=== PATIENT | female | born 1960 | race Caucasian/White ===

== ENCOUNTER → 2016-10-15 | Outpatient (CLI) | payer OTHER ==
[~2016-10-15] MED LIST: CHOL100010 PO; MULT-506 PO; PROGESTERONE CREAM TOP; [UNRECOGNIZED DRUG - CODE]
--- NOTE | 2016-10-15 16:27 | MAMMOGRAPHY REPORT ---
BILATERAL DIGITAL SCREENING MAMMOGRAM TOMOSYNTHESIS WITH CAD: 10/15/2016 CLINICAL HISTORY: Routine screening examination. TECHNIQUE: Breast tomosynthesis in addition to standard 2D mammography was performed. Current study was also evaluated with a Computer Aided Detection (CAD) system. COMPARISON: Comparison is made to exams dated: 10/10/2015 mammogram, 10/07/2014 mammogram, 10/05/2013 ul trasound, 10/05/2013 mammogram, 04/02/2013 mammogram, and 04/02/2013 ultrasound - [facility] enter. BREAST COMPOSITION: The tissue of both breasts is heterogeneously dense, which may obscure small mas ses. FINDINGS: There is a stable ribbon shaped metallic biopsy marker in the right upper outer quadrant. A few benign rim calcifications in the breasts. No suspicious mass, architectural distortion or clu ster of suspicious microcalcifications is seen. IMPRESSION: ACR BI-RADS CATEGORY 1: NEGATIVE There is no mammographic evidence of malignancy. A 1 year screening mammogram is recommended. The pa tient will receive written notification of the results. Approximately 10% of breast cancers are not detected with mammography. A negative mammographic report should not delay biopsy if a clinically suggestive mass is present. Josie Tarango M.D. ay/:10/15/2016 15:43:58 [employer] Operator: Consuelo WU)(M), [facility] letter sent: Normal 1/2 BI-RADS Code: ACR BI-RADS Category 1: Negative
== END | disposition home or self-care (01) ==
LOC: C.MAMM 08:24
PROVIDERS: ATTEND Obstetrics & Gynecology
DX: Z12.31 Encounter for screening mammogram for malignant neoplasm of breast (principal)

== ENCOUNTER → 2016-12-18 | Outpatient (CLI) | payer OTHER | END | disposition home or self-care (01) | LOC: C.PAPS 12:01 | PROVIDERS: ATTEND Obstetrics & Gynecology | DX: Z01.419 Encounter for gynecological examination (general) (routine) without abnormal findings (principal) ==

== ENCOUNTER → 2016-12-24 | Day surgery (SDC) | payer OTHER ==
[2016-12-19 12:52] VITALS: BMI 19.0
[~2016-12-24] VITALS: Ht 165.1 cm; Wt 51.8 kg
[~2016-12-24] MED LIST changes: +PROPOFOL IV EMULSION 10 MG/ML 20 ML VIAL IV ONE; +SODIUM CHLORIDE 0.9% 500ML 500 ML IV ONE
[2016-12-24 08:23] VITALS: Ht 165.1 cm; Wt 51.8 kg
--- NOTE | 2016-12-24 08:39 | Endo History and Physical ---
History & Physical Date of Service: Dec 24, 2016. Chief Complaint: Malignant neoplasm Referring Physician: Chirag Ferguson History of Present Illness 56 yo CF who presents for colonoscopy secondary to family history of colon cancer. Past Surgical History Hx Cardiac Surgery: No Hx Internal Defibrillator: No Hx Pacemaker: No Hx Abdominal Surgery: Yes (APPY, OVARIAN CYSTECTOMY, FATTY LIPOMA REMOVAL FROM ABDOMEN) Hx of Implantable Prosthesis: No Hx Post-Op Nausea and Vomiting: No Hx Cancer Surgery: No Hx Thoracic Surgery: No Hx Orthopedic: No Hx Urinary Tract Surgery: No Family History Colon CA Social History Smoking Status: Never Smoker Hx Substance Use: No Hx Alcohol Use: Yes (OCCASIONAL) Allergies Coded Allergies: Aspirin (Verified Allergy, Unknown, HIVES, 12/24/16) Current Medications Reported Home Medications Medications Dose Route/Sig Max Daily Dose Days Date Category Estriol Concentrate (Estriol (Bulk)) 10 % Cre 1 Dose UD 12/19/16 Reported Vitamin D (Cholecalciferol) 1,000 Unit Tab 1 Tab PO QAM 12/19/16 Reported Multivitamin (Multivitamins) Tab 1 Tab PO BID 12/19/16 Reported [Progesterone Cream] 1 Dose TOP DAILY 12/19/16 Reported Vital Signs Weight (Kilograms): 51.82 Height (Feet): 5 Height (Inches): 5 Physical Exam General Appearance: WD/WN, no apparent distress Respiratory/Chest: Auscultation: breath sounds normal Cardiovascular: Heart Auscultation: RRR Abdomen: Bowel Sounds: normal Inspection & Palpation: soft, non-distended, no tenderness, guarding & rebound Assessment and Plan Assessment: 56 yo CF who presents for colonoscopy secondary to family history of colon cancer. Plan: Proceed with colonoscopy.
--- NOTE | 2016-12-24 09:27 | Discharge Instructions ---
Endoscopy Patient Instructions Date / Procedure(s) Performed Dec 24, 2016. Colonoscopy Allergy Information Coded Allergies: Aspirin (Verified Allergy, Unknown, HIVES, 12/24/16) Discharge Date / Findings Dec 24, 2016. Internal hemorrhoids Medication Instructions OK to resume all medications today as prescribed Reported Home Medications Medications Dose Route/Sig Max Daily Dose Days Date Category Estriol Concentrate (Estriol (Bulk)) 10 % Cre 1 Dose UD 12/19/16 Reported Vitamin D (Cholecalciferol) 1,000 Unit Tab 1 Tab PO QAM 12/19/16 Reported Multivitamin (Multivitamins) Tab 1 Tab PO BID 12/19/16 Reported [Progesterone Cream] 1 Dose TOP DAILY 12/19/16 Reported Provider Instructions Activity Restrictions - No exercising or heavy lifting for 24 hours. - Do not drink alcohol the day of the procedure. - Do not drive a car or operate machinery until the day after the procedure. - Do not make any important decisions or sign important papers in 24 hours after the procedure. Following Day: - Return to full activity which may include returning to work/school. Diet Start your diet with liquids and light foods (jello, soup, juice, toast). Then eat your usual diet if not nauseated. Treatment For Common After Affects For mild abdominal pain, bloating, or excessive gas: - Rest - Eat lightly - Lie on right side Follow-Up Information Follow-up with LIZBETH LEON as scheduled Anesthesia Information What You Should Know You have had a procedure that required some medicine to reduce anxiety and discomfort. This treatment is called moderate sedation. After receiving the treatment, you may be sleepy, but you will be able to breathe on your own. The effects of the treatment may last for several hours. Follow these instructions along with Activity/Diet recommendations noted above: * Do NOT do anything where dizziness or clumsiness would be dangerous. * Rest quietly at home today, then you can be up and about tomorrow. * Have a responsible person stay with you the rest of today. * You may have had an I.V. today. If so, you may take the dressing off later today. Recommendations Call your doctor if: * Trouble breathing * Continuous vomiting for more than 24 hours * Temperature above 101 degrees * Severe abdominal pain or bloating * Pain not relieved by pain medicine ordered * There is increased drainage or redness from any incision * A large amount of rectal bleeding greater than 2-3 tablespoons. (If you had a polyp/s removed or have hemorrhoids, a small amount of blood - from the rectum is to be expected.) * You have any unanswered questions or concerns. IN THE EVENT OF A SERIOUS EMERGENCY, GO TO THE NEAREST EMERGENCY ROOM Your discharge instructions were prepared by provider Bryan Jarquin. Patient Instructions Signature Page Myra Sapp Patient (or Guardian) Signature/Date: I have read and understand the instructions given to me by my caregivers. Caregiver/RN/Doctor Signature/Date: The above-named patient and/or guardian has received patient instructions on this date. + Original Patient Signature Page (only) stays with chart. Please make copy for patient.
--- NOTE | 2016-12-24 09:46 | GI REPORT ---
Procedure Date: 12/24/2016 8:51 AM Procedure: Colonoscopy Indications: Family history of colon cancer in a first-degree relative Medicines: Monitored Anesthesia Care Complications: No immediate complications. Estimated Blood Loss: Estimated blood loss: none. Procedure: Pre-Anesthesia Assessment: - Prior to the procedure, a History and Physical was performed, and patient medications and allergies were reviewed. The patient's tolerance of previous anesthesia was also reviewed. The risks and benefits of the procedure and the sedation options and risks were discussed with the patient. All questions were answered, and informed consent was obtained. Prior Anticoagulants: The patient has taken no previous anticoagulant or antiplatelet agents. ASA Grade Assessment: II - A patient with mild systemic disease. After reviewing the risks and benefits, the patient was deemed in satisfactory condition to undergo the procedure. After I obtained informed consent, the scope was passed under direct vision. Throughout the procedure, the patient's blood pressure, pulse, and oxygen saturations were monitored continuously. The scope was introduced through the anus and advanced to the terminal ileum. The colonoscopy was performed without difficulty. The patient tolerated the procedure well. The quality of the bowel preparation was good. The terminal ileum, ileocecal valve, appendiceal orifice, and rectum were photographed. Findings: Non-bleeding internal hemorrhoids were found during retroflexion. The hemorrhoids were small. Impression: - Non-bleeding internal hemorrhoids. - No specimens collected. Recommendation: - Resume previous diet. - Continue present medications. - Repeat colonoscopy in 5 years for surveillance. - Return to primary care physician as previously scheduled. Bryan Jarquin DO 12/24/2016 9:46:10 AM This report has been signed electronically. Note Initiated On: 12/24/2016 8:51 AM I attest to the content of the Intraoperative Record and orders documented therein, exceptions below
--- NOTE | 2016-12-24 09:57 | Anesthesiology Progress Note ---
Anesthesia Post Op Note Date & Time Dec 24, 2016 at 09:57 Vital Signs Pain Intensity: 0 Vital Signs Past 12 Hours Date Time Temp Pulse Resp B/P (MAP) Pulse Ox O2 Delivery O2 Flow Rate FiO2 12/24/16 08:38 36.6 99 20 141/98 (112) 100 Room Air Notes Mental Status: alert / awake / arousable, participated in evaluation Pt Amnestic to Procedure: Yes Nausea / Vomiting: adequately controlled Pain: adequately controlled Airway Patency, RR, SpO2: stable & adequate BP & HR: stable & adequate Hydration State: stable & adequate Anesthetic Complications: no major complications apparent
[2016-12-24 10:00] VITALS: BP 125/88; PULSE 59; O2SAT 100
== END | disposition home or self-care (01) ==
LOC: C.GI 08:12
PROVIDERS: ATTEND Internal Medicine
DX: Z80.0 Family history of malignant neoplasm of digestive organs (principal); K57.90 Diverticulosis of intestine, part unspecified, without perforation or abscess without bleeding; K64.8 Other hemorrhoids

== ENCOUNTER 2022-11-24 14:43 | Observation (INO) ==
[2022-11-24] MEDS ORDERED: SODIUM CHLORIDE 0.9% 1000ML 1,000 ML IV ONE (14:58)
[2022-11-24 15:29] LABS: Basophils # (auto) 0.05 K/uL (0-0.2); Basophils % (auto) 0.5 %; Eosinophils # (auto) 0.06 K/uL (0-0.50); Eosinophils % (auto) 0.7 %; Hemoglobin 14.8 g/dl (12.0-16.0); Immature Granulocytes # (auto) 0.04 K/uL (0.01-0.20); Immature Granulocytes % (auto) 0.4 %; Lymphocytes # (auto) 1.55 K/uL (1.2-3.4); Mean Corpuscular Hemoglobin 31.6 pg (25.0-34.0); Mean Corpuscular Hgb Conc 35.2 g/dL (32.0-36.0); Mean Corpuscular Volume 89.7 fL (80.0-100.0); Mean Platelet Volume 10.8 fL (9.4-12.4); Monocytes # (auto) 0.78 K/uL (0.11-0.59); Monocytes % (auto) 8.6 %; Neutrophils # (auto) 6.62 K/uL (1.40-6.50); Neutrophils % (auto) 72.8 %; Platelet Count 252 K/uL (130-400); RDW Coefficient of Variation 12.3 % (11.5-14.5); RDW Standard Deviation 40.4 fL (36.4-46.3); Red Blood Count 4.68 M/uL (4.20-5.40)
--- NOTE | 2022-11-24 15:33 | XRay Report ---
SINGLE VIEW CHEST CLINICAL HISTORY: Atypical chest pain FINDINGS: An AP, portable, upright chest radiograph is obtained. No prior studies are available for c omparison at the time of dictation. The cardiomediastinal silhouette is unremarkable. The lungs and p leural spaces are clear. No pneumothorax is seen. The bony thorax is grossly intact. IMPRESSION: No active disease in the chest. ACT 112: Negative or not required by law. Electronically signed by: Brady Bean M.D. 11/24/2022 3:32 PM
[2022-11-24 15:38] LABS: Albumin Globulin Ratio 1.6 (0.9-2); Albumin Level 4.6 gm/dl (3.4-5.0); Bilirubin,Total 0.8 mg/dl (0.2-1.0); Calcium 9.5 mg/dl (8.6-10.3); Creatinine Clr Calc Pharmacy 59.6 ml/min; Est GFR (African American) 97.6 ml/min; Est GFR (Non-African American) 84.2 ml/min; Globulin 2.9 gm/dl (2.5-4.0); Magnesium 1.9 mg/dl (1.7-2.4); Potassium 3.7 mmol/L (3.5-5.1); Total Protein 7.5 gm/dl (6.0-8.3)
[2022-11-24 15:45] LABS: Troponin I High Sensitivity 2.5 pg/ml (0-14)
[2022-11-24] MEDS ORDERED: IOVERSOL 350 MG 125mL Prefilled Syringe IV ONE (15:54)
--- NOTE | 2022-11-24 16:17 | Emergency Department Note ---
Impression & Plan Cholecystitis, Cholelithiasis, Chest pain ED Provider Note NAME: TERESA WAN AGE: 62 SEX: F ARRIVES VIA: Walk-In INFORMANT: Patient ED PROVIDER(S): Ace Pressley MD CHIEF COMPLAINT: Chest pain PLAN: Disposition: Admit MEDICAL DECISION MAKING: The patient is a pleasant 62-year-old woman who reports a past medical history of acid reflux who presents to emergency department via walk-in for evaluation of 4-5 days of constant lower substernal chest pain which she reports radiates to her back. She reports she thought her symptoms could be related to acid reflux but had no improvement with Tums. She denies shortness of breath, nausea, vomiting, fevers, chills, cough, congestion. She denies diarrhea or urinary symptoms. Of note, the patient did arrive to emergency department during time of high volume, acuity and prolonged emergency department waiting times. Critical pathways initiated from triage. On my evaluation, the patient is in no acute distress, afebrile heart in the 120s and blood pressure 150s/80s and vital signs otherwise stable. Her abdomen is nontender and there is a negative Saldaña sign. EKG without overt acute ischemia. Chest x-ray negative for acute cardiopulmonary process WBC, H/H and platelets within normal limits. Chemistry without metabolic acidosis. Electrolytes and LFTs unremarkable. High-sensitivity troponin 2.5, within normal limits. Lipase not elevated. CT of the chest was performed and was negative for PE or acute pulmonary process otherwise. Note is made of possible cholecystitis where edema and gallstone in the gallbladder fossa is suspected. Right upper quadrant ultrasound was obtained and further characterizes suspected cholecystitis with gallbladder is markedly distended and filled with stones and sludge. Gallbladder wall is thickened and edematous measuring up to 5 mm and there is associated pericholecystic fluid. CBD measures up to 0.5 cm in diameter. I did reevaluate the patient at the bedside and her abdomen continues to be benign and nontender. I did review her findings which otherwise would explain her symptoms given her upper abdominal/lower chest pain with radiation to her back. She did agree with plan for admission for further evaluation and management. Case was discussed with general surgery on-call, Dr. Rae, appreciate consultation and recommendations. Plan for admission to medicine service and they will evaluate the patient for further recommendations. Case was discussed with Dr. Soares, [facility] hospitalist, who will evaluate the patient for admission. IV ceftriaxone and Flagyl ordered. Triage Nursing notes reviewed and agree them. Prior/outside medical records reviewed Vital Signs: reviewed Differential diagnosis: Cardiac ischemia, aortic dissection, pulmonary embolism, pneumothorax, pneumonia, pericarditis, myocarditis, esophageal rupture, GERD, cholecystitis, pancreatitis, musculoskeletal, as well as other pathologies. ER treatment provided: See below. Diagnostics interpreted by me: ECG: Normal sinus rhythm, 97 bpm, no ectopy, no overt ST elevation or depression, QTc 459, QRS 90. Of note, machine interpretation of possible ectopic atrial rhythm is suspected to be artifactual. Cardiac Monitoring: An order for continuous cardiac monitoring was placed and demonstrated Normal sinus rhythm, 97 bpm, no ectopy. Laboratory studies: See below Imaging studies: See below Consultation(s): Dr. Rae, General surgery. Dr. Soares, [facility] hospitalist. HPI: The patient is a pleasant 62-year-old woman who reports a past medical history of acid reflux who presents to emergency department via walk-in for evaluation of 4-5 days of constant lower substernal chest pain which she reports radiates to her back. She reports she thought her symptoms could be related to acid reflux but had no improvement with Tums. She denies shortness of breath, nausea, vomiting, fevers, chills, cough, congestion. She denies diarrhea or urinary symptoms. ROS: See above HPI for pertinent positives & negatives. A total of 10 systems reviewed and were otherwise negative. VITALS:See Below PHYSICAL EXAMINATION: GENERAL: Awake, alert, fatigued but well-appearing, in no distress HENT: Normocephalic, atraumatic. Oropharynx with dry mucous membranes and otherwise unremarkable. EYES: Normal conjunctiva. Sclera non-icteric. NECK: Supple. No nuchal rigidity. FROM. No JVD. RESPIRATORY: Clear to auscultation. CARDIAC: Tachycardic rate, normal rhythm. Extremities warm and well perfused. Pulses equal. ABDOMEN: Soft, non-distended. No tenderness to palpation. No rebound or guarding. No masses. RECTAL: Deferred. MUSCULOSKELETAL: Chest examination reveals no tenderness. The back is symmetrical on inspection without obvious abnormality. There is no CVA tenderness to palpation. No joint edema. LOWER EXTREMITIES: Calves are equal size bilaterally and non-tender. No edema. No discoloration. NEURO: Normal sensorium. No sensory or motor deficits noted. SKIN: No rash or jaundice noted. Ace Pressley MD Past Med/Surg History Medical History Anxiety Breast cyst Cervical polyp Cholelithiases Depression Diverticulosis Elevated blood pressure reading without diagnosis of hypertension Herpes genitalis History of ovarian cyst Internal hemorrhoids Leaky heart valve DOES NOT FOLLOW W/ CARDIO Postmenopausal bleeding Surgical History History of anesthesia reaction SLOW TO WAKE History of appendectomy History of biopsy (~2012) endometrial biopsy History of breast biopsy (~2010) Right side History of cervical polypectomy History of colonoscopy (~2016) History of dilation and curettage (~07/09/18) History of ovarian cystectomy History of tooth extraction Status post hysteroscopic polypectomy Family History Father Colorectal cancer Grandmother (Maternal) Breast cancer Mother Liver cancer Denies family history of Ovarian cancer Prostate cancer Myocardial infarction Social History Smoking Status: Never smoker Second Hand Exposure: No; Do You Dip or Chew Tobacco: No; Hx Alcohol Use: Yes Alcohol type: beer Hx Substance Use: No Preferred Language: Citizen [place] Communication Ability: Effective Visual Impairment: Partially Limited Hearing Ability: Normal Counter Former Required: No Beliefs That Will Affect Care: None marital status: Current Living Situation: Spouse current occupational status: employed current occupation: [employer] Feels Safe at Home: Yes Childhood Exposure to Second-Hand Smoke: Yes caffeine: Yes Dental Care, Regularly: Yes Physical Activity Frequency: 5-6 Times per Week Seatbelt Use: always Sunscreen Use: Yes Assistive Devices: Glasses Allergies Allergies Allergy/AdvReac Type Severity Reaction Status Date / Time aspirin Allergy Unknown HIVES Verified 11/24/22 16:21 Home Meds Home Medications Medication Instructions Recorded Confirmed multivitamin 1 tab PO QAM 06/20/18 11/24/22 omega-3 fatty acids 1,000 mg 1,000 mg PO QAM 12/18/18 11/24/22 capsule Results & Data (ED) Vital Signs Vital Signs - 24 hr 11/24/22 14:43 11/24/22 15:03 11/24/22 15:10 Temperature 36.4 C L Temperature Source Temporal Artery Scan Pulse Rate 122 H 84 Pulse Rate [Left Apical] 86 Respiratory Rate 16 21 Respiratory Effort / Characteristics Non-Labored Spontaneous Respiratory Depth Normal Blood Pressure 153/88 H Blood Pressure [Right Arm] 166/96 H Blood Pressure Mean 109 Blood Pressure Mean [Right Arm] 119 Pulse Oximetry 100 100 Oxygen Delivery Method Room Air Room Air Sepsis Recent Fever Within 48 Hours No Sepsis New/Unexplained Change in Mental Status No Sepsis Action Taken by Nursing No Action Required 11/24/22 15:10 11/24/22 15:30 11/24/22 16:06 Temperature Temperature Source Pulse Rate 82 91 H 77 Pulse Rate [Left Apical] Respiratory Rate 13 15 18 Respiratory Effort / Characteristics Respiratory Depth Blood Pressure 159/97 H 153/83 H Blood Pressure [Right Arm] Blood Pressure Mean 117 106 Blood Pressure Mean [Right Arm] Pulse Oximetry 100 100 100 Oxygen Delivery Method Room Air Room Air Room Air Sepsis Recent Fever Within 48 Hours Sepsis New/Unexplained Change in Mental Status Sepsis Action Taken by Nursing 11/24/22 16:30 11/24/22 17:00 11/24/22 18:05 Temperature Temperature Source Pulse Rate 78 86 76 Pulse Rate [Left Apical] Respiratory Rate 14 23 16 Respiratory Effort / Characteristics Respiratory Depth Blood Pressure 157/86 H 152/88 H 158/94 H Blood Pressure [Right Arm] Blood Pressure Mean 109 109 115 Blood Pressure Mean [Right Arm] Pulse Oximetry 100 100 100 Oxygen Delivery Method Room Air Room Air Room Air Sepsis Recent Fever Within 48 Hours Sepsis New/Unexplained Change in Mental Status Sepsis Action Taken by Nursing 11/24/22 18:30 11/24/22 18:58 11/24/22 19:00 Temperature Temperature Source Pulse Rate 72 91 H Pulse Rate [Left Apical] Respiratory Rate 17 Respiratory Effort / Characteristics Respiratory Depth Blood Pressure 140/86 Blood Pressure [Right Arm] Blood Pressure Mean 104 Blood Pressure Mean [Right Arm] Pulse Oximetry 99 99 Oxygen Delivery Method Room Air Room Air Sepsis Recent Fever Within 48 Hours Sepsis New/Unexplained Change in Mental Status Sepsis Action Taken by Nursing 11/24/22 19:00 11/24/22 19:30 11/24/22 20:00 Temperature Temperature Source Pulse Rate 81 81 76 Pulse Rate [Left Apical] Respiratory Rate 22 20 18 Respiratory Effort / Characteristics Respiratory Depth Blood Pressure 147/83 H 133/83 158/90 H Blood Pressure [Right Arm] Blood Pressure Mean 104 99 112 Blood Pressure Mean [Right Arm] Pulse Oximetry 94 99 99 Oxygen Delivery Method Room Air Room Air Room Air Sepsis Recent Fever Within 48 Hours Sepsis New/Unexplained Change in Mental Status Sepsis Action Taken by Nursing Laboratory Data Attestation: I reviewed the patient's lab results. 11/24/22 15:06 11/24/22 15:06 Lab Results 11/24/22 11/24/22 Range/Units 15:06 15:06 WBC 9.10 (4.8-10.8) K/ul RBC 4.68 (4.20-5.40) M/uL Hgb 14.8 (12.0-16.0) g/dl Hct 42.0 (37.0-47.0) % MCV 89.7 (80.0-100.0) fL MCH 31.6 (25.0-34.0) pg MCHC 35.2 (32.0-36.0) g/dL RDW Std Deviation 40.4 (36.4-46.3) fL RDW Coeff of Jamel 12.3 (11.5-14.5) % Plt Count 252 (130-400) K/uL MPV 10.8 (9.4-12.4) fL Immature Gran % (Auto) 0.4 % Neut % (Auto) 72.8 % Lymph % (Auto) 17.0 % Swisher % (Auto) 8.6 % Eos % (Auto) 0.7 % Baso % (Auto) 0.5 % Neut # (Auto) 6.62 H (1.40-6.50) K/uL Lymph # (Auto) 1.55 (1.2-3.4) K/uL Swisher # (Auto) 0.78 H (0.11-0.59) K/uL Eos # (Auto) 0.06 (0-0.50) K/uL Baso # (Auto) 0.05 (0-0.2) K/uL Immature Gran # (Auto) 0.04 (0.01-0.20) K/uL Sodium 136 (136-145) mmol/L Potassium 3.7 (3.5-5.1) mmol/L Chloride 102 (98-107) mmol/L Carbon Dioxide 25 (21-32) mmol/L Anion Gap 9 (3-11) BUN 12 (6-23) mg/dl Creatinine 0.75 (0.6-1.2) mg/dl Est Cr Clr Drug Dosing 59.6 ml/min Est GFR ( Amer) 97.6 ml/min Est GFR (Non-Af Amer) 84.2 ml/min BUN/Creatinine Ratio 16.0 (10-20) Glucose 93 (70-99(Fasting)) mg/dl Calcium 9.5 (8.6-10.3) mg/dl Magnesium 1.9 (1.7-2.4) mg/dl Total Bilirubin 0.8 (0.2-1.0) mg/dl AST 34 (13-39) U/L ALT 26 (7-52) U/L Alkaline Phosphatase 113 H (34-104) U/L Troponin I High Sens 2.5 (0-14) pg/ml Total Protein 7.5 (6.0-8.3) gm/dl Albumin 4.6 (3.4-5.0) gm/dl Globulin 2.9 (2.5-4.0) gm/dl Albumin/Globulin Ratio 1.6 (0.9-2) Lipase 18 (11-82) U/L Administered Medications Metronidazole (Flagyl) 500 mg in 100 mls @ 100 mls/hr IV NOW STA; Protocol Stop: 11/24/22 20:32 Last Admin: 11/24/22 20:14 Dose: 100 mls/hr Documented By: OCLIN Discontinued Medications Sodium Chloride (Nss 1000ml) 1,000 mls @ 999 mls/hr IV .Q1H1M ONE Stop: 11/24/22 15:58 Last Infusion: 11/24/22 17:16 Dose: 0 mls/hr Documented By: Admin: 11/24/22 15:09 Dose: 999 mls/hr Documented By: KYMBERLY Ceftriaxone Sodium (Rocephin) 2,000 mg in 70 mls @ 140 mls/hr IV NOW STA Stop: 11/24/22 20:02 Last Admin: 11/24/22 20:14 Dose: 140 mls/hr Documented By: COLIN Ioversol (Ioversol 350 Mg 125ml Prefilled Syringe) 119 ml IV ONCE ONE Stop: 11/24/22 15:55 Last Admin: 11/24/22 15:54 Dose: 119 ml Documented By: CARL Imaging Data Radiologist's Impression: Chest X-Ray 11/24/22 14:58 SINGLE VIEW CHEST CLINICAL HISTORY: Atypical chest pain FINDINGS: An AP, portable, upright chest radiograph is obtained. No prior studies are available for comparison at the time of dictation. The cardiomediastinal silhouette is unremarkable. The lungs and pleural spaces are clear. No pneumothorax is seen. The bony thorax is grossly intact. IMPRESSION: No active disease in the chest. ACT 112: Negative or not required by law. Electronically signed by: Brady Bean M.D. 11/24/2022 3:32 PM Chest CTA 11/24/22 15:40 CT ANGIOGRAM OF THE CHEST CLINICAL HISTORY: Atypical chest pain. Thoracic back pain. COMPARISON STUDY: Chest x-ray dated 11/24/2022. TECHNIQUE: Following the IV administration of 119 cc of Optiray 350, CT angiogram of the chest was performed from the upper abdomen to the thoracic inlet utilizing the pulmonary embolus protocol. Images are reviewed in the axial, sagittal, and coronal planes. 3-D MIPS images are created and assessed. IV contrast was administered without complication. A dose lowering technique was utilized adhering to the principles of ALARA. CT DOSE: 254.61 mGy.cm FINDINGS: Thyroid: Imaged portions of the thyroid gland are normal in size and atten uation. Thoracic aorta: The thoracic aorta is normal in caliber and demonstrates standard 3-vessel arch anatomy. No dissection is seen. Pulmonary vasculature: The pulmonary trunk is normal in caliber. There are no filling defects identified in main, lobar, or segmental pulmonary branches to suggest pulmonary embolus. Heart: The heart is normal in size and without pericardial effusion. Lungs and pleural spaces: There is no airspace consolidation or pleural effusion. There is minimal dependent atelectasis. The trachea and central airways are clear. Mediastinum: There is no mediastinal lymphadenopathy. Kneia: Clear. Axillae: There is no axillary lymphadenopathy. Upper abdomen: A possible gallstone and edema are suggested in the gallbladder fossa. Only a tiny portion of the hepatic hilum is visualized. A 14 mm cyst is seen in the upper pole of the right kidney. Skeletal structures: No lytic or blastic bony lesions are seen. IMPRESSION: 1. There is no evidence of pulmonary embolus in the main, lobar, or segmental pulmonary arteries. 2. The lungs are clear. 3. Edema and a a possible gallstone are suggested in the gallbladder fossa. Only a tiny portion of this is visualized, and this should be correlated with clinical and laboratory findings. If there is clinical concern for cholecystitis a right upper quadrant ultrasound should be obtained. ACT 112: Negative or not required by law. Electronically signed by: Brady Bean M.D. 11/24/2022 4:17 PM Gallbladder Ultrasound 11/24/22 16:43 ULTRASOUND RIGHT UPPER QUADRANT ABDOMEN CLINICAL HISTORY: Upper abdominal pain. COMPARISON STUDY: Abdominal ultrasound dated 10/11/2014. Chest CT dated 11/24/2022. TECHNIQUE: Real-time, grayscale, and color flow sonography of the right upper quadrant of the abdomen was performed. Images are reviewed in the transverse and longitudinal planes. FINDINGS: Liver: The liver is normal in size and echotexture. There is no intrahepatic biliary ductal dilatation. The main portal vein is patent. Gallbladder: The gallbladder is markedly distended and filled with stones/sludge. The gallbladder wall is thickened and edematous measuring up to 5 mm. There is pericholecystic fluid. A sonographic Saldaña's sign is reportedly absent. The common bile duct measures up to 0.5 cm in diameter. Pancreas: Visualized portions of the pancreatic head and body are normal in appearance. The splenic vein is patent. Right kidney: Survey images of the right kidney demonstrate normal size and echotexture. There is no hydronephrosis. Ascites: None. IMPRESSION: 1. Cholelithiasis and biliary sludge with sonographic evidence of acute cholecystitis. Surgical evaluation is advised. 2. No intra or extrahepatic biliary ductal dilatation is seen. ACT 112: Negative or not required by law. Electronically signed by: Brady Bean M.D. 11/24/2022 5:47 PM Discharge Plan Visit Data Chief Complaint: Chest Pain Stated Complaint: CHEST PAIN, SOB ED Provider: Ace Pressley Discharge Problem: Cholecystitis, Cholelithiasis, Chest pain Forms Stand Alone Forms: My [facility] [employer] Prescriptions Prescriptions: No Action omega-3 fatty acids 1,000 mg capsule 1,000 mg PO QAM multivitamin Tablet 1 tab PO QAM Referrals Referrals: Buffy Crespo PA-C [Primary Care Provider] -
--- NOTE | 2022-11-24 16:19 | CT Scan Report ---
CT ANGIOGRAM OF THE CHEST CLINICAL HISTORY: Atypical chest pain. Thoracic back pain. COMPARISON STUDY: Chest x-ray dated 11/24/2022. TECHNIQUE: Following the IV administration of 119 cc of Optiray 350, CT angiogram of the chest was pe rformed from the upper abdomen to the thoracic inlet utilizing the pulmonary embolus protocol. Images are reviewed in the axial, sagittal, and coronal planes. 3-D MIPS images are created and assessed. I V contrast was administered without complication. A dose lowering technique was utilized adhering to the principles of ALARA. CT DOSE: 254.61 mGy.cm FINDINGS: Thyroid: Imaged portions of the thyroid gland are normal in size and attenuation. Thoracic aorta: The thoracic aorta is normal in caliber and demonstrates standard 3-vessel arch anato my. No dissection is seen. Pulmonary vasculature: The pulmonary trunk is normal in caliber. There are no filling defects identif ied in main, lobar, or segmental pulmonary branches to suggest pulmonary embolus. Heart: The heart is normal in size and without pericardial effusion. Lungs and pleural spaces: There is no airspace consolidation or pleural effusion. There is minimal de pendent atelectasis. The trachea and central airways are clear. Mediastinum: There is no mediastinal lymphadenopathy. [place]: Clear. Axillae: There is no axillary lymphadenopathy. Upper abdomen: A possible gallstone and edema are suggested in the gallbladder fossa. Only a tiny por tion of the hepatic hilum is visualized. A 14 mm cyst is seen in the upper pole of the right kidney. Skeletal structures: No lytic or blastic bony lesions are seen. IMPRESSION: 1. There is no evidence of pulmonary embolus in the main, lobar, or segmental pulmonary arteries. 2. The lungs are clear. 3. Edema and a a possible gallstone are suggested in the gallbladder fossa. Only a tiny portion of th is is visualized, and this should be correlated with clinical and laboratory findings. If there is cl inical concern for cholecystitis a right upper quadrant ultrasound should be obtained. ACT 112: Negative or not required by law. Electronically signed by: Brady Bean M.D. 11/24/2022 4:17 PM
--- NOTE | 2022-11-24 17:50 | Ultrasound Report ---
ULTRASOUND RIGHT UPPER QUADRANT ABDOMEN CLINICAL HISTORY: Upper abdominal pain. COMPARISON STUDY: Abdominal ultrasound dated 10/11/2014. Chest CT dated 11/24/2022. TECHNIQUE: Real-time, grayscale, and color flow sonography of the right upper quadrant of the abdomen was performed. Images are reviewed in the transverse and longitudinal planes. FINDINGS: Liver: The liver is normal in size and echotexture. There is no intrahepatic biliary ductal dilatatio n. The main portal vein is patent. Gallbladder: The gallbladder is markedly distended and filled with stones/sludge. The gallbladder wal l is thickened and edematous measuring up to 5 mm. There is pericholecystic fluid. A sonographic Murp hy's sign is reportedly absent. The common bile duct measures up to 0.5 cm in diameter. Pancreas: Visualized portions of the pancreatic head and body are normal in appearance. The splenic v ein is patent. Right kidney: Survey images of the right kidney demonstrate normal size and echotexture. There is no hydronephrosis. Ascites: None. IMPRESSION: 1. Cholelithiasis and biliary sludge with sonographic evidence of acute cholecystitis. Surgical evalu ation is advised. 2. No intra or extrahepatic biliary ductal dilatation is seen. ACT 112: Negative or not required by law. Electronically signed by: Brady Bean M.D. 11/24/2022 5:47 PM
[2022-11-24] MEDS ORDERED: cefTRIAXone SODIUM 2,000 MG/70 ML BAG IV STA (19:33)
[2022-11-24] MEDS ORDERED: metroNIDAZOLE 500 MG/100 ML BAG IV STA (19:33)
--- NOTE | 2022-11-24 19:36 | History & Physical Report ---
Date of Service November 24, 2022 Assessment & Plan (1) Acute cholecystitis: Plan: This patient is a 62-year-old female here with persistent epigastric and lower chest pain x4 days with associated poor p.o. intake and elevated alkaline phosphatase level. RUQ ultrasound with evidence of acute cholecystitis but no CBD dilatation Labs with elevated alkaline phosphatase but otherwise normal, no evidence of sepsis -Admit to medical/surgical unit -Administer ceftriaxone and metronidazole for antibiotics -Surgery consult for evaluation for cholecystectomy-patient is agreeable -Keep n.p.o. -Start LR at 125 MLS per hour -IV Tylenol and IV Dilaudid as needed for pain -Start IV Pepcid 20 mg twice daily for heartburn associated with this as Tums did help her somewhat at home (2) Elevated alkaline phosphatase level: Plan: Related to acute cholecystitis Follow LFTs in the morning (3) Heartburn: Plan: Adding Pepcid as above (4) Abnormal EKG: Plan: With unusual P axis, ectopic atrial rhythm and anterolateral infarct, age undetermined on ECG Patient has no evidence of angina otherwise and is typically quite active. No evidence of heart failure, although she does question the possibility of broken heart syndrome given the recent loss of her and her brother in the last few months. With normal P waves on telemetry observed in the ER Normal troponin after pain ongoing persistently for 4 days-noncardiac chest pain -We will check echocardiogram in the morning given abnormal EKG and prior to upcoming likely cholecystectomy -Repeat ECG now -No need for telemetry monitoring Plan DVT prophylaxis-SCDs Disposition-admit to medical/surgical unit Patient recently lost her , but designates her sister, Kristen, as her decision-maker if she is unable to make decisions History of Present Illness Chief Complaint: Lower chest pain Primary Care Provider: Buffy Crespo PA-C This patient is a 62-year-old female with no past medical history who presents to the ER with 4 days of constant lower chest and epigastric pain radiating through to the back. She thought the pain felt like a burning sensation like heartburn and eventually tried some Tums which did bring the pain down slightly. She denies any nausea or vomiting or low appetite but was not eating much the last few days as she was worried it would make the pain worse. She denies any shortness of breath or diarrhea or constipation. No blood in the stool. No fevers or chills at home. She was told she had gallstones 10 years ago but has never been symptomatic from them. She was thinking that the lower chest pain was coming from her heart due to broken heart syndrome as her and her brother just a few months ago. She had a CT angiogram of the chest which showed no PE but showed acute cholecystitis. A follow-up right upper quadrant ultrasound confirmed acute cholecystitis and cholelithiasis with normal CBD size. CBC, CMP, troponin, and lipase were all normal except for mildly elevated alkaline phosphatase. A chest x-ray was normal and her ECG did show an ectopic atrial rhythm but was otherwise normal. She will be admitted for acute cholecystitis and have surgical consultation. Allergies Allergy/AdvReac Type Severity Reaction Status Date / Time aspirin Allergy Unknown HIVES Verified 11/24/22 16:21 Home Medications Medication Instructions Recorded Confirmed Type multivitamin 1 tab PO QAM 06/20/18 11/24/22 History omega-3 fatty acids 1,000 mg 1,000 mg PO QAM 12/18/18 11/24/22 History capsule Past Med/Surg History Medical History Anxiety Breast cyst Cervical polyp Cholelithiases Depression Diverticulosis Elevated blood pressure reading without diagnosis of hypertension Herpes genitalis History of ovarian cyst Internal hemorrhoids Leaky heart valve DOES NOT FOLLOW W/ CARDIO Postmenopausal bleeding Surgical History History of anesthesia reaction SLOW TO WAKE History of appendectomy History of biopsy (~2012) endometrial biopsy History of breast biopsy (~2010) Right side History of cervical polypectomy History of colonoscopy (~2016) History of dilation and curettage (~07/09/18) History of ovarian cystectomy History of tooth extraction Status post hysteroscopic polypectomy Family History Father Colorectal cancer Grandmother (Maternal) Breast cancer Mother Liver cancer Denies family history of Ovarian cancer Prostate cancer Myocardial infarction Social History Smoking Status: Never smoker Second Hand Exposure: No; Do You Dip or Chew Tobacco: No; Hx Alcohol Use: Yes Alcohol type: beer Hx Substance Use: No Preferred Language: Bahraini Communication Ability: Effective Visual Impairment: Partially Limited Hearing Ability: Normal Active Directory Administrator Required: No Beliefs That Will Affect Care: None marital status: Current Living Situation: Spouse current occupational status: employed current occupation: [employer] Feels Safe at Home: Yes Childhood Exposure to Second-Hand Smoke: Yes caffeine: Yes Dental Care, Regularly: Yes Physical Activity Frequency: 5-6 Times per Week Seatbelt Use: always Sunscreen Use: Yes Assistive Devices: Glasses Review of Systems Review of Systems: All systems reviewed & are unremarkable except as noted in HPI & below Physical Exam Constitutional: WD/WN, vitals as above Eyes: PERRL, conjunctivae normal, anicteric sclerae ENMT: external ear and nose normal, oropharynx normal Neck: trachea midline, no thyromegaly Respiratory: normal respiratory effort, lungs clear to auscultation Cardiovascular: RRR, no murmur, no edema Chest (Breasts): Chest: normal inspection of chest Gastrointestinal (Abdomen): normal bowel sounds, soft, nontender, no hepatosplenomegaly Musculoskeletal: Extremities: extremities normal to inspection; no cyanosis and no clubbing Skin: no rashes, warm and dry Neurologic: moves all extremities and awake; no focal motor deficits Psychiatric: A+Ox3, euthymic affect Lymphatic: no lymphedema Results & Data Results & Data Vital Signs (Past 12 Hours) Vital Signs Temp Pulse Pulse Resp BP BP Pulse Ox 11/24/22 19:00 81 22 147/83 H 94 11/24/22 19:00 99 11/24/22 18:58 91 H 11/24/22 18:30 72 17 140/86 99 11/24/22 18:05 76 16 158/94 H 100 11/24/22 17:00 86 23 152/88 H 100 11/24/22 16:30 78 14 157/86 H 100 11/24/22 16:06 77 18 153/83 H 100 11/24/22 15:30 91 H 15 159/97 H 100 11/24/22 15:10 82 13 100 11/24/22 15:10 84 11/24/22 15:03 86 21 166/96 H 100 11/24/22 14:43 36.4 C L 122 H 16 153/88 H 100 O2 Del Method 11/24/22 19:00 Room Air 11/24/22 19:00 Room Air 11/24/22 18:58 11/24/22 18:30 Room Air 11/24/22 18:05 Room Air 11/24/22 17:00 Room Air 11/24/22 16:30 Room Air 11/24/22 16:06 Room Air 11/24/22 15:30 Room Air 11/24/22 15:10 Room Air 11/24/22 15:10 11/24/22 15:03 Room Air 11/24/22 14:43 Room Air Laboratory Results CBC, CMP, lipase, magnesium, troponin all reviewed Diagnostic Findings Chest X-Ray 11/24/22 14:58 SINGLE VIEW CHEST CLINICAL HISTORY: Atypical chest pain FINDINGS: An AP, portable, upright chest radiograph is obtained. No prior studies are available for comparison at the time of dictation. The cardiomediastinal silhouette is unremarkable. The lungs and pleural spaces are clear. No pneumothorax is seen. The bony thorax is grossly intact. IMPRESSION: No active disease in the chest. ACT 112: Negative or not required by law. Electronically signed by: Brady Bean M.D. 11/24/2022 3:32 PM Chest CTA 11/24/22 15:40 CT ANGIOGRAM OF THE CHEST CLINICAL HISTORY: Atypical chest pain. Thoracic back pain. COMPARISON STUDY: Chest x-ray dated 11/24/2022. TECHNIQUE: Following the IV administration of 119 cc of Optiray 350, CT angiogram of the chest was performed from the upper abdomen to the thoracic inlet utilizing the pulmonary embolus protocol. Images are reviewed in the axial, sagittal, and coronal planes. 3-D MIPS images are created and assessed. IV contrast was administered without complication. A dose lowering technique was utilized adhering to the principles of ALARA. CT DOSE: 254.61 mGy.cm FINDINGS: Thyroid: Imaged portions of the thyroid gland are normal in size and attenuation. Thoracic aorta: The thoracic aorta is normal in caliber and demonstrates standard 3-vessel arch anatomy. No dissection is seen. Pulmonary vasculature: The pulmonary trunk is normal in caliber. There are no filling defects identified in main, lobar, or segmental pulmonary branches to suggest pulmonary embolus. Heart: The heart is normal in size and without pericardial effusion. Lungs and pleural spaces: There is no airspace consolidation or pleural effusion. There is minimal dependent atelectasis. The trachea and central airways are clear. Mediastinum: There is no mediastinal lymphadenopathy. [place]: Clear. Axillae: There is no axillary lymphadenopathy. Upper abdomen: A possible gallstone and edema are suggested in the gallbladder fossa. Only a tiny portion of the hepatic hilum is visualized. A 14 mm cyst is seen in the upper pole of the right kidney. Skeletal structures: No lytic or blastic bony lesions are seen. IMPRESSION: 1. There is no evidence of pulmonary embolus in the main, lobar, or segmental pulmonary arteries. 2. The lungs are clear. 3. Edema and a a possible gallstone are suggested in the gallbladder fossa. Only a tiny portion of this is visualized, and this should be correlated with clinical and laboratory findings. If there is clinical concern for cholecystitis a right upper quadrant ultrasound should be obtained. ACT 112: Negative or not required by law. Electronically signed by: Brady Bean M.D. 11/24/2022 4:17 PM Gallbladder Ultrasound 11/24/22 16:43 ULTRASOUND RIGHT UPPER QUADRANT ABDOMEN CLINICAL HISTORY: Upper abdominal pain. COMPARISON STUDY: Abdominal ultrasound dated 10/11/2014. Chest CT dated 11/24/2022. TECHNIQUE: Real-time, grayscale, and color flow sonography of the right upper quadrant of the abdomen was performed. Images are reviewed in the transverse and longitudinal planes. FINDINGS: Liver: The liver is normal in size and echotexture. There is no intrahepatic biliary ductal dilatation. The main portal vein is patent. Gallbladder: The gallbladder is markedly distended and filled with stones/sludge. The gallbladder wall is thickened and edematous measuring up to 5 mm. There is pericholecystic fluid. A sonographic Saldaña's sign is reportedly absent. The common bile duct measures up to 0.5 cm in diameter. Pancreas: Visualized portions of the pancreatic head and body are normal in appearance. The splenic vein is patent. Right kidney: Survey images of the right kidney demonstrate normal size and echotexture. There is no hydronephrosis. Ascites: None. IMPRESSION: 1. Cholelithiasis and biliary sludge with sonographic evidence of acute cholecystitis. Surgical evaluation is advised. 2. No intra or extrahepatic biliary ductal dilatation is seen. ACT 112: Negative or not required by law. Electronically signed by: Brady Bean M.D. 11/24/2022 5:47 PM ECG Additional Comments: As per HPI Code Status & VTE Plan Code Status Full code VTE Prophylaxis Plan VTE Prophylaxis will be ordered: Yes PG Care Time/CCT Total # of Minutes Spent Total Time Spent with Patient: Total time spent is greater than 50% in coordination of care (as documented) at patient's floor/unit and/or counseling patient: Coding Level of Care Code 40889 INT INP/OBS CARE 2/55MIN Diagnoses Acute cholecystitis K81.0 Elevated alkaline phosphatase level R74.8 Heartburn R12 Abnormal EKG R94.31
[2022-11-24] MEDS ORDERED: LACTATED RINGER'S 1,000 ML IV SCH (20:15)
[2022-11-24] MEDS ORDERED: ONDANSETRON INJ 2 MG/ML 2 ML VIAL IV PRN (21:15)
[2022-11-24] MEDS ORDERED: ACETAMINOPHEN 1,000 MG/100 ML VIAL IV PRN (21:15)
[2022-11-24] MEDS: FAMOTIDINE 20 MG in SYRINGE 3 ML IV SCH (21:47)
[2022-11-24] MEDS: HYDROmorphone INJ 0.5 MG/0.5 ML SYR IV PRN (21:52)
--- NOTE | 2022-11-24 22:03 | Surgery Consultation ---
Date of Consultation November 24, 2022 Assessment & Plan (1) Acute cholecystitis: The patient has been admitted on the hospitalist service. Recommend proceeding as follows: Provide analgesics Provide antiemetics Implement n.p.o. status Provide IV fluid for hydration Continue antibiotics. She is current receiving Rocephin and Flagyl We are tentatively planning on a cholecystectomy with Dr. Rae on 11/25/2022. I have discussed the risks, benefits, alternatives, and briefly described the operative procedure with the patient and she wishes to proceed We will check a preoperative COVID test I did discuss with the admitting hospitalist and the patient was noted to have some ectopy on her preoperative EKG and she is therefore ordered a cardiac echo. She does feel that the patient will be medically optimized for surgery but wishes to have the echocardiogram read prior to undergoing surgical intervention. Timing of surgery will depend on when her echo is interpreted and the results of this. We will utilize SCDs only for DVT prevention, no chemical means due to planned surgery Additional recommendations be forthcoming based on her pending echo, timing of surgery, operative findings, and postoperative recovery. Supervising Physician Co-Signing Physician Notes Patient discussed with Rubén Parisi overnight, labs and imaging reviewed, agree with above. Admitted with cholecystitis, plan for laparoscopic cholecystectomy today. For further details, please refer to today's progress note. History of Present Illness Reason for Consultation: Cholecystitis Attending Physician: Juli Soares MD History of Present Illness This is a 62-year-old female who presented to the emergency department secondary to epigastric pain which radiated to her chest into her back. Patient says that this has been present for approximately 4 days without palliative or provocative factors. She denies any fevers, shakes, or chills. She also denies any nausea or vomiting. I question the patient on postprandial pain over the preceding weeks to months which she denied. She has had prior abdominal surgeries in the form of an appendectomy and excision of a right ovarian cyst. I question the patient on her activities of daily living the patient says she is quite active. She notes that she can negotiate steps and inclines and easily walk a mile on a flat surface without any limiting factors such as chest pain or shortness of breath. Since arrival to the hospital the patient has had labs and imaging which independent reviewed. A chest x-ray showed no evidence of pneumonia. A CT scan of the chest showed no evidence of pulmonary emboli. A gallbladder ultrasound was performed that showed cholelithiasis with biliary sludge. Patient was also noted to have some pericholecystic fluid and her gallbladder appeared edematous. These findings were concerning for acute cholecystitis. Labs included a CBC revealed white blood cell count, hemoglobin, hematocrit, and platelet count were normal. Chemistry profile showed sodium, potassium, BUN, and creatinine were normal. Patient did have a slight elevation of her alkaline phosphatase at 113 but her bilirubin and transaminases were nonelevated. Her lipase was not elevated. At the time of my interview she was resting comfortably in bed and she was in no distress Allergies Allergy/AdvReac Type Severity Reaction Status Date / Time aspirin Allergy Unknown HIVES Verified 11/24/22 16:21 Home Medications Medication Instructions Recorded Confirmed Type multivitamin 1 tab PO QAM 06/20/18 11/24/22 History omega-3 fatty acids 1,000 mg 1,000 mg PO QAM 12/18/18 11/24/22 History capsule Patient History Medical History Anxiety Breast cyst Cervical polyp Cholelithiases Depression Diverticulosis Elevated blood pressure reading without diagnosis of hypertension Herpes genitalis History of ovarian cyst Internal hemorrhoids Leaky heart valve DOES NOT FOLLOW W/ CARDIO Postmenopausal bleeding Surgical History History of anesthesia reaction SLOW TO WAKE History of appendectomy History of biopsy (~2012) endometrial biopsy History of breast biopsy (~2010) Right side History of cervical polypectomy History of colonoscopy (~2016) History of dilation and curettage (~07/09/18) History of ovarian cystectomy History of tooth extraction Status post hysteroscopic polypectomy Family History Father Colorectal cancer Grandmother (Maternal) Breast cancer Mother Liver cancer Denies family history of Ovarian cancer Prostate cancer Myocardial infarction Social History Smoking Status: Never smoker Second Hand Exposure: No; Do You Dip or Chew Tobacco: No; Hx Alcohol Use: Yes Alcohol type: beer Hx Substance Use: Yes Preferred Language: Bahamian Communication Ability: Effective Visual Impairment: Partially Limited Hearing Ability: Normal Tunneller Required: No Beliefs That Will Affect Care: None marital status: Current Living Situation: Alone current occupational status: employed current occupation: [employer] Other Information That Helps Us Care for You: No Feels Safe at Home: Yes Safety Concerns: Feels Safe At This Time Childhood Exposure to Second-Hand Smoke: Yes caffeine: Yes Dental Care, Regularly: Yes Physical Activity Frequency: 5-6 Times per Week Seatbelt Use: always Sunscreen Use: Yes Assistive Devices: None Review of Systems Constitutional: no fever and no chills Ear, Nose, Mouth, Throat: no hearing loss Respiratory: no cough and no dyspnea Cardiovascular: no chest pain Gastrointestinal: as per Subjective / HPI Genitourinary: no dysuria Musculoskeletal: + back pain (Radiating from abdomen) Integumentary: no rash Neurologic: no localized weakness Physical Exam Constitutional: WD/WN, vitals as above Eyes: + anicteric sclerae ENMT: Ears: no hearing impairment Sublingual jaundice is absent Neck: trachea midline Respiratory: normal respiratory effort; no respiratory distress and no labored breathing Cardiovascular: Rate/Rhythm: regular rate and regular rhythm Gastrointestinal (Abdomen): Abdomen is soft, nonrigid, nondistended. There is no pain with palpation at the time of my interview. There is no rebound tenderness or guarding Musculoskeletal: No calf tenderness Skin: no rashes Neurologic: moves all extremities Psychiatric: A+Ox3, euthymic affect Results & Data Vital Signs (Past 12 Hours) Vital Signs Temp Pulse Pulse Resp BP BP Pulse Ox 11/24/22 20:30 77 23 150/93 H 100 11/24/22 20:00 76 18 158/90 H 99 11/24/22 19:30 81 20 133/83 99 11/24/22 19:00 81 22 147/83 H 94 11/24/22 19:00 99 11/24/22 18:58 91 H 11/24/22 18:30 72 17 140/86 99 11/24/22 18:05 76 16 158/94 H 100 11/24/22 17:00 86 23 152/88 H 100 11/24/22 16:30 78 14 157/86 H 100 11/24/22 16:06 77 18 153/83 H 100 11/24/22 15:30 91 H 15 159/97 H 100 11/24/22 15:10 82 13 100 11/24/22 15:10 84 11/24/22 15:03 86 21 166/96 H 100 11/24/22 14:43 36.4 C L 122 H 16 153/88 H 100 O2 Del Method 11/24/22 20:30 Room Air 11/24/22 20:00 Room Air 11/24/22 19:30 Room Air 11/24/22 19:00 Room Air 11/24/22 19:00 Room Air 11/24/22 18:58 11/24/22 18:30 Room Air 11/24/22 18:05 Room Air 11/24/22 17:00 Room Air 11/24/22 16:30 Room Air 11/24/22 16:06 Room Air 11/24/22 15:30 Room Air 11/24/22 15:10 Room Air 11/24/22 15:10 11/24/22 15:03 Room Air 11/24/22 14:43 Room Air PG Care Time/CCT Total # of Minutes Spent Total Time Spent with Patient: Total time spent is greater than 50% in coordination of care (as documented) at patient's floor/unit and/or counseling patient: Coding Level of Care Code 16047 IN/OBS CONSULT LVL 5,80M Diagnoses Acute cholecystitis K81.0
[2022-11-25] MEDS: LACTATED RINGER'S 1,000 ML IV SCH ×3 (04:11→17:37)
[2022-11-25] MEDS: metroNIDAZOLE 500 MG/100 ML BAG IV SCH ×3 (04:12→20:23)
[2022-11-25] MEDS: HYDROmorphone INJ 0.5 MG/0.5 ML SYR IV PRN (04:17)
--- NOTE | 2022-11-25 06:11 | Surgery Progress Note ---
Date of Service November 25, 2022 Assessment & Plan (1) Acute cholecystitis: Plan: The patient has been admitted on the hospitalist service. Recommend proceeding as follows: Continue analgesics and antiemetics as needed Maintain n.p.o. status for the present time Provide IV fluid for hydration Continue antibiotics. She is current receiving Rocephin and Flagyl We are tentatively planning on a cholecystectomy with Dr. Rae on 11/25/2022. I have discussed the risks, benefits, alternatives, and briefly described the operative procedure with the patient and she wishes to proceed Preoperative COVID test noted to be negative As noted cholecystectomy is tentatively planned for today. Timing of surgery will based on OR availability as well as echocardiogram that has been ordered by medicine. We will utilize SCDs only for DVT prevention, no chemical means due to planned surgery Additional recommendations be forthcoming based on her pending echo, timing of surgery, operative findings, and postoperative recovery. Admission and Anticipated Discharge Date Admission Date: November 24, 2022 Supervising Physician Co-Signing Physician Notes Patient seen and examined, labs and imaging reviewed, agree with above. 62-year-old female presented with epigastric/chest pain for several days. During her work-up it was noted that she had some inflammation around her gallbladder and ultrasounds performed which showed cholecystitis with cholelithiasis. She denies any prior episodes. She is otherwise healthy, not on any blood thinners. On exam she is afebrile with stable vitals, abdomen is soft, nondistended, tender to palpation in the right upper quadrant with positive Saldaña sign. Labs unremarkable. CT scan and ultrasound personally reviewed and interpreted and agree with the assessment of cholelithiasis with pericholecystic fluid and inflammation and gallbladder wall thickening. Acute cholecystitis Plan for laparoscopic cholecystectomy with possible cholangiogram, hopefully this afternoon The risks of the procedure were discussed to include but not limited to bleeding, infection, retained stone, bile leak, conversion open, damage to surrounding structures, need for future more extensive surgery, failure to treat symptoms, and the risk of anesthesia Pending on timing of surgery, potential discharge this afternoon or tomorrow Subjective Patient is currently resting in bed. She denies any nausea or vomiting. She does note some abdominal tenderness similar to what she noted at time of admission. She denies any fevers, shakes, or chills. Physical Exam Gastrointestinal (Abdomen): Abdomen is soft, nondistended, and nonrigid. There is minimal pain with palpation Results & Data Vital Signs (Past 12 Hours) Vital Signs Temp Pulse Pulse Resp BP BP Pulse Ox 11/24/22 21:00 36.9 C 75 16 143/89 H 99 11/24/22 20:30 77 23 150/93 H 100 11/24/22 20:00 76 18 158/90 H 99 11/24/22 19:30 81 20 133/83 99 11/24/22 19:00 81 22 147/83 H 94 11/24/22 19:00 99 11/24/22 18:58 91 H 11/24/22 18:30 72 17 140/86 99 O2 Del Method 11/24/22 21:00 Room Air 11/24/22 20:30 Room Air 11/24/22 20:00 Room Air 11/24/22 19:30 Room Air 11/24/22 19:00 Room Air 11/24/22 19:00 Room Air 11/24/22 18:58 11/24/22 18:30 Room Air PG Care Time/CCT Total # of Minutes Spent Total Time Spent with Patient: Total time spent is greater than 50% in coordination of care (as documented) at patient's floor/unit and/or counseling patient: Coding Level of Care Code 78912 SUB INP/OBS CARE 05/23MIN Diagnoses Acute cholecystitis K81.0
[2022-11-25 07:47] LABS: Albumin Globulin Ratio 1.5 (0.9-2); Albumin Level 3.8 gm/dl (3.4-5.0); BUN Creatinine Ratio 14.8 (10-20); Bilirubin,Total 0.6 mg/dl (0.2-1.0); Calcium 8.8 mg/dl (8.6-10.3); Creatinine Clr Calc Pharmacy 86.6 ml/min; Est GFR (African American) 115.6 ml/min; Est GFR (Non-African American) 99.7 ml/min; Globulin 2.5 gm/dl (2.5-4.0); Potassium 3.7 mmol/L (3.5-5.1); Total Protein 6.3 gm/dl (6.0-8.3)
[2022-11-25] MEDS: FAMOTIDINE 20 MG in SYRINGE 3 ML IV SCH ×2 (08:36→21:24)
[2022-11-25 09:11] LABS: Basophils # (auto) 0.04 K/uL (0-0.2); Basophils % (auto) 0.5 %; Eosinophils # (auto) 0.02 K/uL (0-0.50); Eosinophils % (auto) 0.2 %; Hematocrit (blood only) 37.5 % (37.0-47.0); Hemoglobin 12.7 g/dl (12.0-16.0); Immature Granulocytes # (auto) 0.01 K/uL (0.01-0.20); Immature Granulocytes % (auto) 0.1 %; Lymphocytes # (auto) 1.03 K/uL (1.2-3.4); Lymphocytes % (auto) 12.6 %; Mean Corpuscular Hemoglobin 30.5 pg (25.0-34.0); Mean Corpuscular Hgb Conc 33.9 g/dL (32.0-36.0); Mean Corpuscular Volume 89.9 fL (80.0-100.0); Mean Platelet Volume 11.4 fL (9.4-12.4); Monocytes # (auto) 0.66 K/uL (0.11-0.59); Monocytes % (auto) 8.1 %; Neutrophils # (auto) 6.39 K/uL (1.40-6.50); Neutrophils % (auto) 78.5 %; Platelet Count 223 K/uL (130-400); RDW Coefficient of Variation 12.5 % (11.5-14.5); RDW Standard Deviation 41.1 fL (36.4-46.3); Red Blood Count 4.17 M/uL (4.20-5.40); White Blood Count 8.15 K/ul (4.8-10.8)
--- NOTE | 2022-11-25 10:41 | Electrocardiogram Report ---
Test Reason : Blood Pressure : / mmHG Vent. Rate : 097 BPM Atrial Rate : 097 BPM P-R Int : 134 ms QRS Dur : 090 ms QT Int : 362 ms P-R-T Axes : 149 076 143 degrees QTc Int : 459 ms Probably lead reversal Probably NSR lateral infarct age indeterminate Abnormal ECG When compared with ECG of 23-JUN-2018 11:03, Anterolateral infarct is now Present repeat study with appropriate lead placement Confirmed by Sandor Barrios ([id number]) on 11/25/2022 10:40:58 AM Referred By: REFERRED SELF Confirmed By:Sandor Barrios
--- NOTE | 2022-11-25 11:17 | Electrocardiogram Report ---
Test Reason : Blood Pressure : / mmHG Vent. Rate : 070 BPM Atrial Rate : 070 BPM P-R Int : 132 ms QRS Dur : 080 ms QT Int : 404 ms P-R-T Axes : 076 048 079 degrees QTc Int : 436 ms Normal sinus rhythm Nonspecific ST abnormality When compared with ECG of 24-NOV-2022 14:54, (unconfirmed) limb lead reversal has been fixed Confirmed by Sandor Barrios ([id number]) on 11/25/2022 11:17:09 AM Referred By: REFERRED SELF Confirmed By:Sandor Barrios
[2022-11-25] MEDS ORDERED: BUPIVACAINE 0.5 % 5 MG/1 ML MPF 30ML VIAL ONE (14:07)
[2022-11-25] MEDS ORDERED: ONDANSETRON INJ 2 MG/ML 2 ML VIAL ONE (14:25)
[2022-11-25] MEDS ORDERED: fentaNYL citrate PF 100 MCG/2 ML VIAL ONE ×2 (14:25→15:26)
[2022-11-25] MEDS ORDERED: MIDAZOLAM HCL 1 MG/ML 2ML VIAL ONE (14:25)
[2022-11-25] MEDS ORDERED: DEXAMETHASONE SOD INJ 4 MG/ML VIAL ONE (14:25)
[2022-11-25] MEDS ORDERED: PROPOFOL IV EMULSION 10 MG/ML 20 ML VIAL IV ONE (14:25)
[2022-11-25] MEDS ORDERED: LIDOCAINE 2% 2 ML VIAL/AMP(20MG/ML) INFIL ONE (14:25)
--- NOTE | 2022-11-25 14:28 | Anesthesiology Consultation ---
Date of Service November 25, 2022 Assessment & Plan Chart Review Chart Review: Acceptable Risk for Surgery Consults Requested none History Surgery Operation Date: 11/25/22 12:30 Proposed Procedures p Laparoscopic Cholecystectomy - Jose Rae DO, FACS Height/Weight Height: 5 ft 5 in Weight: 52.1 kg Allergies Allergy/AdvReac Type Severity Reaction Status Date / Time aspirin Allergy Unknown HIVES Verified 11/24/22 16:21 Medications Home Medications Medication Instructions Recorded Confirmed Last Taken multivitamin 1 tab PO QAM 06/20/18 11/24/22 12/23/21 omega-3 fatty acids 1,000 mg 1,000 mg PO QAM 12/18/18 11/24/22 12/23/21 capsule Active Medications Generic Name Dose Route Start Last Admin Trade Name Freq PRN Reason Stop Dose Admin Hydromorphone HCl 0.25 mg 11/24/22 21:15 11/25/22 04:17 Hydromorphone Inj 0.5 Mg/0.5 Ml Syr IV 12/08/22 21:14 0.25 mg Q6H PRN Administration Moderate-severe pain Famotidine 20 mg/ Syringe 5 mls @ 2.5 mls/min 11/24/22 21:30 11/25/22 08:36 IV 12/24/22 21:29 2.5 mls/min BID DILIA Administration Lactated Ringer's 1,000 mls @ 125 mls/hr 11/24/22 21:15 11/25/22 11:18 Lr IV 12/24/22 21:14 125 mls/hr .Q8H DILIA Administration Metronidazole 500 mg in 100 mls @ 100 mls/hr 11/25/22 04:00 11/25/22 12:17 Flagyl IV 12/05/22 03:59 Infused Q8H DILIA Infusion Protocol Acetaminophen 1,000 mg in 100 mls @ 400 mls/hr 11/24/22 21:15 11/25/22 09:37 Ofirmev IV 11/27/22 21:14 Infused Q8H PRN Infusion Pain or Fever NPO Date Last Intake of Fluids: 11/24/22 Time Last Intake of Fluids: 22:00 Date Last Intake of Solids: 11/24/22 Time Last Intake of Solids: 09:00 Past Medical History Medical History Anxiety Breast cyst Cervical polyp Cholelithiases Depression Diverticulosis Elevated blood pressure reading without diagnosis of hypertension Herpes genitalis History of ovarian cyst Internal hemorrhoids Leaky heart valve DOES NOT FOLLOW W/ CARDIO Postmenopausal bleeding Past Family History Family History Father Colorectal cancer Grandmother (Maternal) Breast cancer Mother Liver cancer Denies family history of Ovarian cancer Prostate cancer Myocardial infarction Past Surgical History Surgical History History of anesthesia reaction SLOW TO WAKE History of appendectomy History of biopsy (~2012) endometrial biopsy History of breast biopsy (~2010) Right side History of cervical polypectomy History of colonoscopy (~2016) History of dilation and curettage (~07/09/18) History of ovarian cystectomy History of tooth extraction Status post hysteroscopic polypectomy Social History Smoking Status: Never smoker Do You Dip or Chew Tobacco: No Hx Alcohol Use: Yes Alcohol type: beer alcohol intake frequency: a few times a week Hx Substance Use: Yes substance use type: does not use Physical Exam Vital Signs Last Vital Signs Temp 37.0 C 11/25/22 07:14 Pulse 69 11/25/22 07:14 Resp 20 11/25/22 07:14 BP 145/80 H 11/25/22 07:14 Pulse Ox 97 11/25/22 07:14 O2 Del Method Room Air 11/25/22 07:14 Testing Laboratory Results 11/25/22 06:39 11/25/22 06:39
[2022-11-25] MEDS ORDERED: PROMETHAZINE HCL 12.5 MG in SODIUM CHLORIDE 0.9% 50 ML IV PRN (14:30)
[2022-11-25] MEDS ORDERED: HYDROmorphone INJ 2 MG/ML SYR/VIAL IV PRN (14:30)
[2022-11-25] MEDS ORDERED: ONDANSETRON INJ 2 MG/ML 2 ML VIAL IV PRN (14:30)
[2022-11-25] MEDS ORDERED: ePHEDrine sulfate 50 MG/ML AMP IV PRN (14:30)
[2022-11-25] MEDS ORDERED: ATROPINE SULFATE 0.1 MG/ML 10ML SYR IV PRN (14:30)
[2022-11-25] MEDS ORDERED: ROCURONIUM BROMIDE 10 MG/ML 5 ML VIAL IV ONE (14:55)
[2022-11-25] MEDS ORDERED: ceFAZolin 330 MG/ML 1 GM VIAL ONE (14:55)
--- NOTE | 2022-11-25 16:03 | Operative Report ---
PG Post Operative Report Pre & Post Diagnosis Operation Date: 11/25/22 12:30 Pre-Op Diagnosis: Acute cholecystitis Post-Op Diagnosis: Acute cholecystitis I identified the patient and participated in the time-out.: Yes Procedure Operation Date: 11/25/22 12:30 Actual Procedures p Laparoscopic Cholecystectomy(Not Applicable) - Jose Rae DO, FACS Surgeon Jose Rae DO, FACS Software Requirements Engineer None Estimated Blood Loss 15 Findings Consistent with Post-Op Diagnosis Distended and acutely inflamed gallbladder. Aspirated to allow for retraction. Multiple large stones impacted in the neck. Critical view of safety obtained, cystic duct and artery doubly clipped and divided. Some spillage of bile but no spillage of stones. Subxiphoid fascia incision extended to accommodate gallbladder. Good hemostasis Specimens Gallbladder Anesthesia Type General Complications none Disposition Accompanied Patient To Recovery: No Disposition: Recovery Room Indications 62-year-old female presented with signs symptoms of acute cholecystitis, plan for laparoscopic cholecystectomy, possible cholangiogram. The risks of the procedure were discussed, all questions were answered, and the patient agreed to proceed with surgery as planned. Description of Procedure The patient was properly identified, consented, and taken to the operating room where she was placed in the supine position. General endotracheal anesthesia was induced. SCDs and a safety belt were placed. Preoperative antibiotics were administered. The patient's abdomen was prepped and draped in the standard sterile fashion. A surgical timeout was performed and all parties were in agreement that this was the correct patient and procedure to be performed and we continued as planned. An incision was made superior and to the left of the umbilicus overlying the rectus muscle and the Veress needle was inserted. Saline drop test confirmed entry into the peritoneum. The abdomen was insufflated with carbon dioxide which the patient tolerated without incident. The abdomen was then entered using the Optiview technique and a 5 mm trocar. The laparoscope was inserted and no damage from initial trocar or Veress needle placement was noted, no gross abnormalities were noted within the 4 quadrants of the abdomen. An 11 mm port was placed in the subxiphoid position and two 5 mm ports were then placed in the right subcostal position. The patient was placed in reverse Trendelenburg position and rotated towards the left. The gallbladder was acutely inflamed and quite distended. A large needle was inserted to the gallbladder and the gallbladder was aspirated to allow for retraction. The dome of the gallbladder was retracted towards the left upper quadrant and the infundibulum was retracted toward the right lower quadrant revealing Calot's triangle. It was evident that there was multiple large stones in the gallbladder, 1 of which was impacted at the neck. Peritoneal attachments were taken down with electrocautery and blunt dissection. The cystic duct and artery were circumferentially dissected. A window of safety was obtained showing the cystic duct entering the gallbladder with no aberrant structures noted. The cystic duct and artery were doubly clipped and divided. The gallbladder was then lifted off the gallbladder fossa with electrocautery. During this process we were somewhat limited in her visualization due to the patient's small body habitus and the quite distended gallbladder. There was some spillage of bile but no spillage of stones. The gallbladder was placed in an Endo Catch bag and removed through the subxiphoid port site. This had to be extended in order to accommodate the gallbladder and the large stones. The right upper quadrant was irrigated and hemostasis was found to be good. 5 mm trochars were removed under direct visualization and the abdomen was allowed to collapse. The subxiphoid port site fascia was closed with a running 0 Vicryl suture in the posterior fascia and a second running 0 Vicryl suture in the anterior fascia. The wound was irrigated, and the skin of all ports was closed with 4-0 Monocryl subcuticular sutures. Dermabond was placed over the wounds. The patient was extubated in the operating room and taken to the PACU where she recovered without apparent incident. All sponge, instrument and needle counts were correct at the conclusion of the procedure. The patient tolerated the procedure well. I attest to the content of the Intraoperative Record and any orders documented therein. Any exceptions are noted below.
[2022-11-25] MEDS: fentaNYL citrate PF 100 MCG/2 ML VIAL IV PRN ×2 (16:15→16:20)
[2022-11-25] MEDS ORDERED: oxyCODONE HCL IR 5 MG TAB (IMMEDIATE RELEASE) PO PRN ×2 (16:39)
[2022-11-25] MEDS ORDERED: diphenhydrAMINE 50 MG/ML VIAL IV PRN (16:39)
[2022-11-25] MEDS: KETOROLAC TROMETHAMINE 15 MG/ML VIAL IV SCH ×2 (17:07→22:41)
[2022-11-25] MEDS ORDERED: cefTRIAXone SODIUM 1,000 MG in DEXTROSE 5% AD-VAN 50 ML IV SCH (20:00)
--- NOTE | 2022-11-25 23:58 | Hospitalist Progress Note ---
Date of Service November 25, 2022 Assessment & Plan (1) Acute cholecystitis: Plan: This patient is a 62-year-old female here with persistent epigastric and lower chest pain x4 days with associated poor p.o. intake and elevated alkaline phosphatase level. RUQ ultrasound with evidence of acute cholecystitis but no CBD dilatation Labs with elevated alkaline phosphatase but otherwise normal, no evidence of sepsis -Admit to medical/surgical unit -Administer ceftriaxone and metronidazole for antibiotics -Surgery consult for evaluation for cholecystectomy-patient is agreeable -Keep n.p.o. -Start LR at 125 MLS per hour -IV Tylenol and IV Dilaudid as needed for pain -Start IV Pepcid 20 mg twice daily for heartburn associated with this as Tums did help her somewhat at home (2) Elevated alkaline phosphatase level: Plan: Related to acute cholecystitis Follow LFTs in the morning (3) Heartburn: Plan: Adding Pepcid as above (4) Abnormal EKG: Plan: With unusual P axis, ectopic atrial rhythm and anterolateral infarct, age undetermined on ECG Patient has no evidence of angina otherwise and is typically quite active. No evidence of heart failure, although she does question the possibility of broken heart syndrome given the recent loss of her and her brother in the last few months. With normal P waves on telemetry observed in the ER Normal troponin after pain ongoing persistently for 4 days-noncardiac chest pain -We will check echocardiogram in the morning given abnormal EKG and prior to upcoming likely cholecystectomy -Repeat ECG now -No need for telemetry monitoring Plan DVT prophylaxis-SCDs Disposition-admit to medical/surgical unit Patient recently lost her , but designates her sister, Kristen, as her decision-maker if she is unable to make decisions Admission and Anticipated Discharge Date Admission Date: November 24, 2022 Subjective Patient is currently resting in bed. She denies any nausea or vomiting. She does note some abdominal tenderness similar to what she noted at time of admission. She denies any fevers, shakes, or chills. Physical Exam Constitutional: WD/WN, vitals as above Eyes: PERRL, conjunctivae normal, anicteric sclerae ENMT: external ear and nose normal, oropharynx normal Neck: trachea midline, no thyromegaly Respiratory: normal respiratory effort, lungs clear to auscultation Cardiovascular: RRR, no murmur, no edema Neurologic: PERRL, EOMI, accommodation nl, no face palsy, no dysarthria Psychiatric: A+Ox3, euthymic affect Results & Data Results & Data Vital Signs (Past 12 Hours) Vital Signs Temp Pulse Pulse Resp BP BP Pulse Ox 11/25/22 23:27 36.7 C 74 18 117/70 96 11/25/22 20:20 11/25/22 19:31 36.4 C L 80 18 117/73 95 11/25/22 18:32 74 18 124/79 98 11/25/22 17:30 36.7 C 72 16 132/81 97 11/25/22 17:00 36.6 C 75 16 152/87 H 96 11/25/22 16:40 77 15 132/77 97 11/25/22 16:30 36.6 C 88 16 152/84 H 96 11/25/22 16:20 36.6 C 86 18 147/87 H 96 11/25/22 16:10 89 16 143/107 H 100 11/25/22 16:03 36.1 C L 96 H 17 147/98 H 100 O2 Del Method O2 Flow Rate 11/25/22 23:27 Room Air 11/25/22 20:20 Room Air 11/25/22 19:31 Room Air 11/25/22 18:32 Room Air 11/25/22 17:30 Room Air 11/25/22 17:00 Room Air 11/25/22 16:40 Room Air 11/25/22 16:30 Room Air 11/25/22 16:20 Room Air 11/25/22 16:10 Room Air 11/25/22 16:03 Oxymask 6 PG Care Time/CCT Total # of Minutes Spent Total Time Spent with Patient: Total time spent is greater than 50% in coordination of care (as documented) at patient's floor/unit and/or counseling patient: Coding Level of Care Code 72224 SUB INP/OBS CARE 2/35MIN Diagnoses Acute cholecystitis K81.0 Elevated alkaline phosphatase level R74.8 Heartburn R12 Abnormal EKG R94.31 Time Spent (min) 35
[2022-11-26] MEDS: LACTATED RINGER'S 1,000 ML IV SCH ×2 (00:55→08:15)
[2022-11-26] MEDS: metroNIDAZOLE 500 MG/100 ML BAG IV SCH ×2 (04:36→11:38)
[2022-11-26] MEDS: KETOROLAC TROMETHAMINE 15 MG/ML VIAL IV SCH ×2 (04:36→11:40)
[2022-11-26 07:53] LABS: Basophils # (auto) 0.02 K/uL (0-0.2); Basophils % (auto) 0.2 %; Eosinophils # (auto) 0.01 K/uL (0-0.50); Eosinophils % (auto) 0.1 %; Hematocrit (blood only) 33.2 % (37.0-47.0); Hemoglobin 11.2 g/dl (12.0-16.0); Immature Granulocytes # (auto) 0.02 K/uL (0.01-0.20); Immature Granulocytes % (auto) 0.2 %; Lymphocytes # (auto) 0.96 K/uL (1.2-3.4); Lymphocytes % (auto) 10.5 %; Mean Corpuscular Hemoglobin 30.5 pg (25.0-34.0); Mean Corpuscular Hgb Conc 33.7 g/dL (32.0-36.0); Mean Corpuscular Volume 90.5 fL (80.0-100.0); Mean Platelet Volume 11.3 fL (9.4-12.4); Monocytes # (auto) 0.74 K/uL (0.11-0.59); Monocytes % (auto) 8.1 %; Neutrophils # (auto) 7.38 K/uL (1.40-6.50); Neutrophils % (auto) 80.9 %; Platelet Count 204 K/uL (130-400); RDW Coefficient of Variation 12.2 % (11.5-14.5); RDW Standard Deviation 41.1 fL (36.4-46.3); Red Blood Count 3.67 M/uL (4.20-5.40); White Blood Count 9.13 K/ul (4.8-10.8)
[2022-11-26 08:06] LABS: Albumin Globulin Ratio 1.4 (0.9-2); Albumin Level 3.3 gm/dl (3.4-5.0); BUN Creatinine Ratio 11.8 (10-20); Bilirubin,Total 0.5 mg/dl (0.2-1.0); Calcium 8.7 mg/dl (8.6-10.3); Creatinine Clr Calc Pharmacy 91.7 ml/min; Est GFR (African American) 117.8 ml/min; Est GFR (Non-African American) 101.6 ml/min; Globulin 2.3 gm/dl (2.5-4.0); Potassium 3.9 mmol/L (3.5-5.1); Total Protein 5.6 gm/dl (6.0-8.3)
[2022-11-26] MEDS: FAMOTIDINE 20 MG in SYRINGE 3 ML IV SCH (08:15)
--- NOTE | 2022-11-26 08:54 | Surgery Progress Note ---
Date of Service November 26, 2022 Assessment & Plan (1) S/P laparoscopic cholecystectomy: Plan: POD 1 laparoscopic cholecystectomy Patient states she is feeling great Denies nausea, vomiting, flatus, bowel movement Tolerating clear liquid diet, will advance to full liquids Denies pain other than discomfort at incisional sites Encouraged ambulation WBC 9 LFT AST 75 ALT 73, elevation likely due to surgical manipulation Surgical sites covered with dermabond, mild ecchymosis noted on upper incisional site, no s/s of infection noted VSS Plan Patient seen and examined, labs reviewed. Status post laparoscopic cho lecystectomy, doing well. Tolerating diet, pain improved. On exam afebrile with stable vitals. Abdomen soft, nontender, incisions without infection. Labs unremarkable. Advance diet as tolerated, discharge home. Wound care instructions, activity restrictions, and return precautions given, call with questions or concerns. Follow-up in 2 weeks. Admission and Anticipated Discharge Date Admission Date: November 24, 2022 Subjective Patient states she is feeling great Denies nausea, vomiting, flatus, bowel movement Tolerating clear liquid diet Denies pain other than discomfort at incisional sites Review of Systems Constitutional: no fever and no sweats Respiratory: no dyspnea Gastrointestinal: + abdominal pain (incisional pain); no nausea and no vomiting Genitourinary: no problem reported Physical Exam Physical Exam: alert/awake Constitutional: well developed, cooperative and comfortable Respiratory: normal respiratory effort and able to speak in complete sentences; no respiratory distress Cardiovascular: Rate/Rhythm: regular rate Gastrointestinal (Abdomen): Inspection/Auscultation: + abdominal surgical incision (surgical glue to incisions, mild ecchymosis to upper port site ); abdomen not distended Percussion/Palpation: + abdomen tender (incisional areas) and abdomen soft Results & Data Vital Signs (Past 12 Hours) Vital Signs Temp Pulse Resp BP Pulse Ox O2 Del Method 11/26/22 06:06 98.4 F 73 18 133/78 96 Room Air 11/25/22 23:27 98.1 F 74 18 117/70 96 Room Air PG Care Time/CCT Total # of Minutes Spent Total Time Spent with Patient: Total time spent is greater than 50% in coordination of care (as documented) at patient's floor/unit and/or counseling patient: Coding Level of Care Code None Diagnoses S/P laparoscopic cholecystectomy Z90.49
--- NOTE | 2022-11-26 13:34 | Discharge Summary ---
Date of Service November 26, 2022 Admission HPI Per Admitting Provider This patient is a 62-year-old female with no past medical history who presents to the ER with 4 days of constant lower chest and epigastric pain radiating through to the back. She thought the pain felt like a burning sensation like heartburn and eventually tried some Tums which did bring the pain down slightly. She denies any nausea or vomiting or low appetite but was not eating much the last few days as she was worried it would make the pain worse. She denies any shortness of breath or diarrhea or constipation. No blood in the stool. No fevers or chills at home. She was told she had gallstones 10 years ago but has never been symptomatic from them. She was thinking that the lower chest pain was coming from her heart due to broken heart syndrome as her and her brother just a few months ago. She had a CT angiogram of the chest which showed no PE but showed acute cholecystitis. A follow-up right upper quadrant ultrasound confirmed acute cholecystitis and cholelithiasis with normal CBD size. CBC, CMP, troponin, and lipase were all normal except for mildly elevated alkaline phosphatase. A chest x-ray was normal and her ECG did show an ectopic atrial rhythm but was otherwise normal. She will be admitted for acute cholecystitis and have surgical consultation. Principal Diagnosis Acute Cholelithiasis with cholecystitis Discharge Exam Constitutional WD/WN, vitals as above Eyes PERRL, conjunctivae normal, anicteric sclerae ENMT external ear and nose normal, oropharynx normal Neck trachea midline, no thyromegaly Respiratory normal respiratory effort, lungs clear to auscultation Cardiovascular RRR, no murmur, no edema Neurologic PERRL, EOMI, accommodation nl, no face palsy, no dysarthria Psychiatric A+Ox3, euthymic affect Discharge Data Allergies Allergy/AdvReac Type Severity Reaction Status Date / Time aspirin Allergy Unknown HIVES Verified 11/24/22 16:21 Consultations 11/24/22 19:32 ED Decision to Admit Stat 11/24/22 21:15 Consult General Surgery Routine Procedures Performed Operation Date: 11/25/22 12:30 Actual Procedures p Laparoscopic Cholecystectomy(Not Applicable) - Jose Rae, , FACS Ordered Studies 11/24/22 15:40 CT angio chest PE protocol Stat 11/24/22 16:43 US gallbladder Stat Hospital Course (1) Acute cholecystitis: This patient is a 62-year-old female here with persistent epigastric and lower chest pain x4 days with associated poor p.o. intake and elevated alkaline phosphatase level. RUQ ultrasound with evidence of acute cholecystitis but no CBD dilatation Labs with elevated alkaline phosphatase but otherwise normal, no evidence of sepsis -Admit to medical/surgical unit -Administer ceftriaxone and metronidazole for antibiotics -Surgery consult for evaluation for cholecystectomy-patient is agreeable -Keep n.p.o. -Start LR at 125 MLS per hour -IV Tylenol and IV Dilaudid as needed for pain -Start IV Pepcid 20 mg twice daily for heartburn associated with this as Tums did help her somewhat at home (2) Elevated alkaline phosphatase level: Related to acute cholecystitis Follow LFTs in the morning (3) Heartburn: Adding Pepcid as above (4) Abnormal EKG: With unusual P axis, ectopic atrial rhythm and anterolateral infarct, age undetermined on ECG Patient has no evidence of angina otherwise and is typically quite active. No evidence of heart failure, although she does question the possibility of broken heart syndrome given the recent loss of her and her brother in the last few months. With normal P waves on telemetry observed in the ER Normal troponin after pain ongoing persistently for 4 days-noncardiac chest pain -We will check echocardiogram in the morning given abnormal EKG and prior to u pcoming likely cholecystectomy -Repeat ECG now -No need for telemetry monitoring Plan DVT prophylaxis-SCDs Disposition-admit to medical/surgical unit Patient recently lost her , but designates her sister, Kristen, as her decision-maker if she is unable to make decisions Total Time Total Time Spent Total Time Spent (In Minutes): 35 Discharge Plan Discharge Items Patient Disposition: Home - Self-Care Reason For Visit: acute cholecystitis Discharge Diagnosis: laparoscopic cholecystectomy Activity: Per Instructions section Lifting: No more than 25 pounds Bathing Comment: may shower; no soaking in tubs/pools x 2 weeks Exercise/Sports: Wait until after follow-up appointment Driving/Machine Use: no driving while taking narcotics for pain Non-emergency contact: Primary Care Provider and Surgeon Call non-emergency contact if: you have any medication questions, your symptoms worsen, your pain is worsening, your pain is unusual for you, you have a fever, your temperature is above 101.5, your wound has increased redness, your wound has increased drainage and your wound pain has increased Follow-up/Referrals: Buffy Crespo, PADale [Primary Care Provider] - Jose Rae DO, FACS [Physician] - 12/03/22 11:30 am (Please call to schedule follow up in clinic within 2 weeks ) Diet: Regular Addtl Attending Provider Instructions: You have skin glue over your incisions called dermabond. you may shower with this on. It will tend to dissolve and fall off within a couple weeks. Do not pick at the skin glue Pending Studies at Discharge: Yes Studies:: surgical pathology Stand-Alone Forms: My [facility] TOOVIA, Smoking Cessation Medications and DC Order Prescriptions: New oxycodone-acetaminophen [Percocet] 5-325 mg tablet 1 - 2 tab PO .q4-6h PRN (Reason: pain, for initial therapy, max 6 tabs per day) Qty: 15 0RF Continued omega-3 fatty acids 1,000 mg capsule 1,000 mg PO QAM multivitamin Tablet 1 tab PO QAM Discharge Orders: Discharge Order (Routine); Ordered 11/26/22 Ordered By: Corie Fisher Admission Data Admit Date/Time: 11/24/22 20:10 Attending Provider: Med Hedrick Admit Provider: Juli Soares Primary Care Provider: Buffy Crespo Other Providers: Juli Soares ; Jose Rae Coding Level of Care Code 19972 INP/OBS DISCH >30 MIN Diagnoses Acute cholecystitis K81.0 Elevated alkaline phosphatase level R74.8 Heartburn R12 Abnormal EKG R94.31 Time Spent (min) 35
[2022-11-26] MEDS ORDERED: FAMOTIDINE 20 MG TAB PO SCH (21:00)
== END 2022-11-26 15:50 | disposition home or self-care (01) ==
LOC: 3N 14:43 → ED 14:43 → SUATTDRO 20:10 → 3N 20:40